=== PATIENT | female | born 1995 | race Caucasian/White ===

== ENCOUNTER 2021-12-31 14:47 | Emergency (ER) | payer SELFPAY ==
[~2021-12-31] VITALS: Ht 162.6 cm; Wt 72.6 kg
[2021-12-31 14:54] VITALS: BP 93/51
--- NOTE | 2021-12-31 14:54 | NUR ---
DR CARTWRIGHT AT BEDSIDE
[2021-12-31] MEDS ORDERED: NACL 0.9% 1,000 ML IV ONE (15:05)
[2021-12-31] MEDS ORDERED: MORPHINE SULFATE 4 MG/ML SYR IVP ONE (15:05)
[2021-12-31] MEDS ORDERED: ONDANSETRON 4 MG/2 ML VIAL IVP ONE (15:05)
[2021-12-31 15:23] LABS: BASOPHILS % (AUTO) 0.1 % (0.0-2.0); EOSINOPHILS % (AUTO) 0.1 % (0.0-4.0); HEMOGLOBIN 11.7 g/dL (12.0-16.0); LYMPHOCYTES # (AUTO) 0.4 K/uL (2.5-16.5); LYMPHOCYTES % (AUTO) 8.5 % (20.5-51.1); MEAN CORPUSCULAR HEMOGLOBIN 27 pg (27-31); MEAN CORPUSCULAR HGB CONC 32 g/dL (33-37); MEAN CORPUSCULAR VOLUME 82.1 fL (80-94); MONOCYTES % (AUTO) 0.6 % (1.7-9.3); NEUTROPHILS # (AUTO) 4.6 K/uL (1.8-7.7); NEUTROPHILS % (AUTO) 90.7 % (42.2-75.2); PLATELET COUNT (AUTO) 200 K/uL (140-450); RED BLOOD CELL COUNT(AUTO) 4.39 MIL/uL (4.20-5.40)
[2021-12-31 15:33] LABS: ALBUMIN 3.6 g/dL (3.4-5.0); ANION GAP 12.6 (8-16); CARBON DIOXIDE 24.9 mmol/L (21-32); CREATININE 0.8 mg/dL (0.6-1.3); POTASSIUM 3.5 mmol/L (3.5-5.1); TOTAL BILIRUBIN 0.6 mg/dL (0.0-1.0)
--- NOTE | 2021-12-31 16:45 | NUR ---
26 Y/O FEMALE BIBA FROM HOME C/O OF SHARP PELVIC PAIN 02/28. PER PT SHE HAD A CERVICAL BIOPSY ON November C/O OF SPOTTING SINCE SURGERY. STATES NAUSEA AND VOMITING, DENIES DIARRHEA NKA PMH: PCOS
--- NOTE | 2021-12-31 17:30 | NUR ---
urine handed to steven nuñez
--- NOTE | 2021-12-31 17:35 | NUR ---
PT OFFERED GLASS OF WATER
[2021-12-31 17:48] LABS: APPEARANCE,URINE CLEAR (CLEAR); BILIRUBIN,URINE NEGATIVE (NEGATIVE); BLOOD, URINE 2+ (NEGATIVE); COLOR,URINE YELLOW (YELLOW); LEUKOCYTE ESTERASE ,URINE 1+ (NEGATIVE); NITRITE, URINE NEGATIVE (NEGATIVE); PH,URINE 6.5 (5.0-9.0); UGLUCOSE NEGATIVE (NEGATIVE)
[2021-12-31 18:07] LABS: OTHER CASTS, URINE None Seen /LPF (None Seen); WBC,URINE 0-5 /HPF (0-5)
[2021-12-31] MEDS ORDERED: CEPH500C16 PO (18:19)
[2021-12-31] MEDS ORDERED: IBUP-2213 PO (18:20)
[2021-12-31 18:47] VITALS: BP 97/53
--- NOTE | 2021-12-31 18:47 | NUR ---
Patient discharged with v/s stable. Written and verbal after care instructions ABOUT PELVIC PAIN/UTI given and explained. Patient alert, oriented and verbalized understanding of instructions. Ambulatory with steady gait. All questions addressed prior to discharge. ID band removed. Patient advised to follow up with PMD. Rx of KEFLEX, MOTRIN given. Patient educated on indication of medication including possible reaction and side effects. Opportunity to ask questions provided and answered.
== END 2021-12-31 18:47 | disposition home or self-care (01) ==
LOC: MED 14:47
DX: N39.0 Urinary tract infection, site not specified (principal); Z20.822 Contact with and (suspected) exposure to COVID-19
CPT/HCPCS: 36415; 76856; 80053; 81001; 81025; 85025; 87086; 87426; 96361; 96374; 96375; 99284; J2270; J2405; J7030; Q0092